=== PATIENT | male | born 1950 | race Caucasian/White ===

== ENCOUNTER 2016-07-27 14:56 | Inpatient (IN) | payer MEDICARE, OTHER ==
--- NOTE | 2016-07-27 15:29 | PDOC ---
Attending Attestation - Resident Resident Name: Byron Mcmahon - ED Attending Attestation I have performed the following: I have examined & evaluated the patient, The case was reviewed & discussed with the resident, I agree w/resident's findings & plan, Exceptions are as noted - HPI HPI: 07/27/16 15:28 The patient is a 66-year-old male, with multiple medical problems including HTN , HLP, CAD, CHF, atrial fibrillation (off anticoagulation due to UGIB in past), who presents to the emergency department at the encouragement of his primary care physician when outpatient labs revealed anemia. He reports dyspnea on exertion. He denies recent melena, hematochezia, hematuria, epistaxis. He denies back pain/thigh pain. He denies new medications. 07/27/16 15:42 - Physicial Exam PE: 07/27/16 15:29 The patient is well appearing and in no acute distress He has conjunctival pallor - Medical Decision Making 07/27/16 15:29 Will obtain labs 07/27/16 16:26 CBC noted with anemia Laboratory Tests 07/27/16 15:40 Hgb 4.8 L* D MCV 68.4 L D RDW 25.2 H Low MCV with high RDW is suggestive of iron deficiency Will guiac Will admit Clinical impression: Symptomatic anemia 07/27/16 16:31 07/27/16 16:32 Case discussed in detail with oncoming Emergency Physician including history, physical exam and ancillary studies. Oncoming Emergency Physician has assumed care for the patient and will complete the evaluation and treatment. Discharge Disposition - Diagnosis Anemia - Discharge Dispostion Last Admission D/C Date: 03/02/14 Admit: Yes - Referrals Referrals: David Nichols MD [Primary Care Provider] -
--- NOTE | 2016-07-27 16:00 | PDOC ---
History of Present Illness - General Stated Complaint: ABNORMAL LABS Time Seen by Provider: 07/27/16 15:10 History Source: Patient Exam Limitations: No Limitations - History of Present Illness Initial Comments: 07/27/16 16:02 63-year-old M with significant past medical history of HTN, HLD, CAD, Atrial fibrillation (previously on Eliquis), CHF, IDDM, asthma and gout who presents to the Emergency Department via EMS sent from PCP due to low Hgb seen of recent labs. He stopped Eliquis 2 mo ago after he experienced hematemesis. Last week went to PCP and had meds adjusted and labs done. Today while walking by clinic PCP saw him and told him they had been trying to contact him. Called EMS and sent him to ER. Now complaining of increased SOB on exertion. Denies CP,ACEVES, abd.pain, nausea or vomiting. Past History - Past Medical History Allergies/Adverse Reactions: Allergies Allergy/AdvReac Type Severity Reaction Status Date / Time No Known Allergies Allergy Verified 07/27/16 15:31 Home Medications: Ambulatory Orders Albuterol Sulfate Inhaler - [Ventolin HFA Inhaler -] 1 - 2 inh PO QID 02/25/14 Hydralazine HCl 25 mg PO BID #0 tablet 03/02/14 Isosorbide Mononitrate [Imdur] 30 mg PO DAILY #0 tab.sr.24h 03/02/14 Allopurinol [Zyloprim -] 100 mg PO DAILY 07/27/16 Amlodipine Besylate [Norvasc -] 10 mg PO DAILY 07/27/16 Aspirin Coated [Ecotrin -] 81 mg PO DAILY 07/27/16 Atorvastatin Ca [Lipitor] 40 mg PO HS 07/27/16 Furosemide [Lasix] 20 mg PO DAILY 07/27/16 Hydralazine HCl [Apresoline -] 25 mg PO DAILY 07/27/16 Insulin Glargine,Hum.rec.anlog [Lantus Solostar PEN (NF)] 3 ml SQ BID 07/27/16 Lisinopril [Prinivil -] 40 mg PO DAILY 07/27/16 Spironolactone 25 mg PO DAILY 07/27/16 Anemia: No Asthma: Yes Cancer: No Cardiac Disorders: Yes CVA: No CHF: No Dementia: No Diabetes: Yes GI Disorders: No Disorders: No HTN: Yes Hypercholesterolemia: Yes Liver Disease: No Seizures: No - Surgical History Cardiac Surgery: No Neurologic Surgery: No Orthopedic Surgery: Yes - Psycho/Social/Smoking Cessation Hx Anxiety: No Suicidal Ideation: No Smoking History: Unknown if ever smoked Have you smoked in the past 12 months: No Hx Alcohol Use: No Drug/Substance Use Hx: No Substance Use Type: None Hx Substance Use Treatment: No Review of Systems - Review of Systems Able to Perform ROS?: Yes Is the patient limited [place] proficient: No Constitutional: Yes: Weakness Respiratory: Yes: SOB with Exertion *Physical Exam - Vital Signs Last Vital Signs Temp Pulse Resp BP Pulse Ox 97.8 F 72 19 128/61 96 07/27/16 15:11 07/27/16 15:11 07/27/16 15:11 07/27/16 15:11 07/27/16 15:11 - Physical Exam General Appearance: Yes: Mild Distress HEENT: positive: EOMI, OUMOU, Other (pale conjuctiva) Neck: positive: Supple Respiratory/Chest: positive: Lungs Clear, Normal Breath Sounds. negative: Respiratory Distress, Accessory Muscle Use Cardiovascular: positive: Regular Rate, S1, S2, Edema, Irregularly Irregular. negative: JVD, Murmur Vascular Pulses: Dorsalis-Pedis (R): 1+, Doralis-Pedis (L): 1+ Gastrointestinal/Abdominal: positive: Normal Bowel Sounds, Distended, Hernia ( large umbilical ). negative: Guarding, Rebound, Tenderness Musculoskeletal: positive: Normal Inspection. negative: CVA Tenderness Extremity: positive: Swelling, Other (right foot with large painful non- erythemtous nodule plantar surface. ). 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 P: * Will most likely need transfusion * stat labs: * URINALYSIS Stat * ELECTROCARDIOGRAM [CARD] Stat * CHEST X-RAY PORTABLE* [RAD] Stat * TYPE AND SCREEN Stat * ACTIVATED PTT Stat * CARDIAC PROFILE ([facility]) Stat * CBC WITH DIFFERENTIAL * COMP METABOLIC PANEL * MAGNESIUM * PT [PT/INR (PROTHROMBIN TIME) * RETICULOCYTES Stat 07/27/16 16:52 Abnormal Lab Results 07/27/16 07/27/16 07/27/16 15:40 15:40 15:40 RBC 2.44 L D Hgb 4.8 L* D Hct 16.7 L D MCV 68.4 L D MCHC 29.0 L RDW 25.2 H Monocytes % 13.6 H INR 1.42 H Crossmatch See Detail 07/27/16 16:52 Will admit and transfuse 2 units PRBC. *DC/Admit/Observation/Transfer Diagnosis at time of Disposition: Anemia Qualifiers: Anemia type: unspecified type Qualified Code(s): D64.9 - Anemia, unspecified - Referrals Referrals: David Nichols MD [Primary Care Provider] -
[2016-07-27 16:04] LABS: BASOPHIL 1.2 % (0-2.0); EOSINOPHIL 1.7 % (0-4.5); MEAN CELL VOLUME 68.4 fl (80-96); MEAN PLT VOLUME 8.3 fl (7.5-11.1); PLATELET COUNT 410 K/MM3 (134-434); RDW 25.2 % (11.9-15.9); WHITE BLOOD COUNT 7.4 K/mm3 (4.0-10.0)
[2016-07-27 16:16] LABS: BILIRUBIN,TOTAL 0.7 mg/dL (0.2-1.0); CALCIUM 8.2 mg/dL (8.5-10.1); COCKROFT - GAULT 37.55; CREATININE 1.8 mg/dL (0.7-1.3); MAGNESIUM 1.8 mg/dL (1.8-2.4); PHOSPHOROUS 4.4 mg/dL (2.5-4.9); TOT PROT 7.3 g/dl (6.4-8.2)
[2016-07-27 16:18] LABS: INR 1.42 (0.82-1.09); PROTHROMBIN TIME (PATIENT) 15.7 SEC (9.98-11.88); TROPONIN I 0.02 ng/ml (0.00-0.05)
[2016-07-27 16:19] LABS: MCH 19.8 pg (25.7-33.7)
[2016-07-27 17:44] LABS: FERRITIN 11.18 ng/ml (16.4-293.9); THYROID STIMULATING HORMONE 2.21 uIU/ml (0.358-3.74)
--- NOTE | 2016-07-27 20:13 | HP ---
CHIEF COMPLAINT: SOB, Weakness PCP: Dr. David Nichols HISTORY OF PRESENT ILLNESS: This is a 66 male with a past medical history of Hypertension, Diabetes Mellitus , Hyperlipidemia, Non-Ischemic Cardiomyopathy, Alcohol Abuse (3 yrs ago), GI bleed. Who presents to the emergency department with SOB, and weakness x 1 week. Patient reports stopping Eliquis 2 months ago secondary to hematemesis. Patient reports drinking [employer] Rum 4-5 glasses 2 weeks ago. Patient denies fever, chills, cough, dizziness, CP, AP, N/V/D, constipation, melena, hematochezia, dysuria. Patient reports last colonoscopy 2013. ER course was notable for: (1) Hgb 4.8 transfused 1 unit PRBC in ED (2) Chest Xray- (3) EKG-Afib 82bpm, Inferior Infarct, Anteroseptal Infarct age undetermined Recent Travel: None PAST MEDICAL HISTORY: See HPI PAST SURGICAL HISTORY: See HPI Social History: Smoking: Never Alcohol: Alcohol Abuse-stopped 3 yrs ago, started 2 weeks ago x1 episode Drugs: None Lives alone, independent, not employed Family History: Mother: Breast Ca Allergies No Known Allergies Allergy (Verified 07/27/16 15:31) HOME MEDICATIONS: Home Medications Medication Instructions Recorded Albuterol Sulfate Inhaler - 1 - 2 inh PO QID 02/25/14 [Ventolin HFA Inhaler -] Hydralazine HCl 25 mg PO BID #0 tablet 03/02/14 Isosorbide Mononitrate [Imdur] 30 mg PO DAILY #0 tab.sr.24h 03/02/14 Allopurinol [Zyloprim -] 100 mg PO DAILY 07/27/16 Amlodipine Besylate [Norvasc -] 10 mg PO DAILY 07/27/16 Aspirin Coated [Ecotrin -] 81 mg PO DAILY 07/27/16 Atorvastatin Ca [Lipitor] 40 mg PO HS 07/27/16 Furosemide [Lasix] 20 mg PO DAILY 07/27/16 Hydralazine HCl [Apresoline -] 25 mg PO DAILY 07/27/16 Insulin Glargine,Hum.rec.anlog 3 ml SQ BID 07/27/16 [Lantus Solostar PEN (NF)] Lisinopril [Prinivil -] 40 mg PO DAILY 07/27/16 Spironolactone 25 mg PO DAILY 07/27/16 REVIEW OF SYSTEMS CONSTITUTIONAL: generalized weakness Absent: fever, chills, diaphoresis, malaise, loss of appetite, weight change HEENT: Absent: rhinorrhea, nasal congestion, throat pain, throat swelling, difficulty swallowing, mouth swelling, ear pain, eye pain, visual changes CARDIOVASCULAR: Absent: chest pain, syncope, palpitations, irregular heart rate, lightheadedness , peripheral edema RESPIRATORY: shortness of breath Absent: cough, dyspnea with exertion, orthopnea, wheezing, stridor, hemoptysis GASTROINTESTINAL: Absent: abdominal pain, abdominal distension, nausea, vomiting, diarrhea, constipation, melena, hematochezia GENITOURINARY: Absent: dysuria, frequency, urgency, hesitancy, hematuria, flank pain, genital pain MUSCULOSKELETAL: right foot growth Absent: myalgia, arthralgia, joint swelling, back pain, neck pain SKIN: Absent: rash, itching, pallor HEMATOLOGIC/IMMUNOLOGIC: Absent: easy bleeding, easy bruising, lymphadenopathy, frequent infections ENDOCRINE: Absent: unexplained weight gain, unexplained weight loss, heat intolerance, cold intolerance NEUROLOGIC: Absent: headache, focal weakness or paresthesias, dizziness, unsteady gait, seizure, mental status changes, bladder or bowel incontinence PSYCHIATRIC: Absent: anxiety, depression, suicidal or homicidal ideation, hallucinations. PHYSICAL EXAMINATION Vital Signs - 24 hr 07/27/16 07/27/16 19:22 20:01 Temperature 97.4 F L 98 F Pulse Rate [ 87 75 Right Radial] Respiratory 20 20 Rate Blood Pressure 144/81 126/78 [Right Arm] O2 Sat by Pulse 100 96 Oximetry (%) GENERAL: Awake, alert, and fully oriented, in no acute distress. HEAD: Normal with no signs of trauma. EYES: Pupils equal, round and reactive to light, extraocular movements intact, sclera icteric, conjunctiva pale. No lid lag. EARS, NOSE, THROAT: Ears normal, nares patent, oropharynx clear without exudates. Dry mucous membranes. NECK: Normal range of motion, supple without lymphadenopathy, JVD, or masses. LUNGS: Breath sounds equal, clear to auscultation bilaterally. No wheezes, and no crackles. No accessory muscle use. HEART: Irregular rate and rhythm, normal S1 and S2 without murmur, rub or gallop. ABDOMEN: Firm, epigastric, RUQ, LLQ tenderness, distended, hypoactive bowel sounds,+large umbilical hernia. No guarding, no rebound, no masses. No hepatomegaly or splenomegaly. MUSCULOSKELETAL: Normal range of motion at all joints. No bony deformities or tenderness. No CVA tenderness. UPPER EXTREMITIES: 2+ pulses, warm, well-perfused. No cyanosis. No clubbing. No peripheral edema. LOWER EXTREMITIES: 2+ pulses, warm, well-perfused. No calf tenderness. +2 pitting R > L peripheral edema. NEUROLOGICAL: Cranial nerves II-XII intact. Normal speech. Gait not observed. PSYCHIATRIC: Cooperative. Good eye contact. Appropriate mood and affect. SKIN: Warm, dry, normal turgor, no rashes, palpable, painful circular nodules smooth with well defined borders #1- 1cm proximal, #2 -2cm distal to plantar aspect of right foot noted, normal capillary refill. Laboratory Results - last 24 hr 07/27/16 07/27/16 07/27/16 16:47 16:50 16:50 Retic Count 2.55 H D Ferritin 11.180 L Vitamin B12 710 Serum Folate 37 H TSH 2.21 Stool Occult Blood Negative Laboratory Results - last 24 hr 07/27/16 07/27/16 07/27/16 15:40 15:40 15:40 WBC 7.4 RBC 2.44 L D Hgb 4.8 L* D Hct 16.7 L D MCV 68.4 L D MCHC 29.0 L RDW 25.2 H Plt Count 410 D MPV 8.3 D Neutrophils % 67.0 Lymphocytes % 16.5 D Monocytes % 13.6 H Eosinophils % 1.7 Basophils % 1.2 Platelet Estimate Adequate Platelet Comment Few giant plts Polychromasia 1+ Hypochromic-Microcytic 3+ Poikilocytosis 1+ Anisocytosis 1+ Microcytosis 1+ Target Cells 1+ Morphology Comment Slide scanned Retic Count INR 1.42 H PTT (Actin FS) Sodium 135 L Potassium 4.7 D Chloride 104 Carbon Dioxide 22 Anion Gap 9 BUN 28 H Creatinine 1.8 H Creat Clearance w eGFR 37.82 POC Glucometer Random Glucose 69 L D Calcium 8.2 L Phosphorus Magnesium Ferritin Total Bilirubin 0.7 D AST 16 ALT 12 Alkaline Phosphatase 155 H D Creatine Kinase Troponin I Total Protein 7.3 D Albumin 3.0 L Vitamin B12 Serum Folate TSH Stool Occult Blood Blood Type Antibody Screen Crossmatch 07/27/16 07/27/16 07/27/16 15:40 15:40 15:40 WBC RBC Hgb Hct MCV MCHC RDW Plt Count MPV Neutrophils % Lymphocytes % Monocytes % Eosinophils % Basophils % Platelet Estimate Platelet Comment Polychromasia Hypochromic-Microcytic Poikilocytosis Anisocytosis Microcytosis Target Cells Morphology Comment Retic Count INR PTT (Actin FS) 28.9 Sodium Potassium Chloride Carbon Dioxide Anion Gap BUN Creatinine Creat Clearance w eGFR POC Glucometer Random Glucose Calcium Phosphorus 4.4 Magnesium 1.8 Ferritin Total Bilirubin AST ALT Alkaline Phosphatase Creatine Kinase 83 Troponin I 0.02 D Total Protein Albumin Vitamin B12 Serum Folate TSH Stool Occult Blood Blood Type O POSITIVE Antibody Screen Negative Crossmatch See Detail 07/27/16 07/27/16 07/27/16 16:47 16:50 16:50 WBC RBC Hgb Hct MCV MCHC RDW Plt Count MPV Neutrophils % Lymphocytes % Monocytes % Eosinophils % Basophils % Platelet Estimate Platelet Comment Polychromasia Hypochromic-Microcytic Poikilocytosis Anisocytosis Microcytosis Target Cells Morphology Comment Retic Count 2.55 H D INR PTT (Actin FS) Sodium Potassium Chloride Carbon Dioxide Anion Gap BUN Creatinine Creat Clearance w eGFR POC Glucometer Random Glucose Calcium Phosphorus Magnesium Ferritin 11.180 L Total Bilirubin AST ALT Alkaline Phosphatase Creatine Kinase Troponin I Total Protein Albumin Vitamin B12 710 Serum Folate 37 H TSH 2.21 Stool Occult Blood Negative Blood Type Antibody Screen Crossmatch 07/27/16 21:00 WBC RBC Hgb Hct MCV MCHC RDW Plt Count MPV Neutrophils % Lymphocytes % Monocytes % Eosinophils % Basophils % Platelet Estimate Platelet Comment Polychromasia Hypochromic-Microcytic Poikilocytosis Anisocytosis Microcytosis Target Cells Morphology Comment Retic Count INR PTT (Actin FS) Sodium Potassium Chloride Carbon Dioxide Anion Gap BUN Creatinine Creat Clearance w eGFR POC Glucometer [id number] Random Glucose Calcium Phosphorus Magnesium Ferritin Total Bilirubin AST ALT Alkaline Phosphatase Creatine Kinase Troponin I Total Protein Albumin Vitamin B12 Serum Folate TSH Stool Occult Blood Blood Type Antibody Screen Crossmatch ASSESSMENT/PLAN: This is a 66 y/o male with a PMHx of: HTN, DM, HLD, Afib (no AC), Non-Ischemic Cardiomyopathy, Alcohol Abuse. Who presents to the ED with SOB and weakness. Admitted to Med Surg for Symptomatic Anemia for further evaluation of their emergent condition. Plan 1. Heme: Symptomatic Anemia - Likely secondary to iron deficiency vs liver disease vs cardio renal syndrome - Hgb baseline 7-14 - Stool Occult-negative - Transfused PRBC x1 in ED, 2nd pending - Will add on FE & TIBC to labs drawn earlier - Appreciate Heme Consult - Repeat CBC post transfusion - Will Transfuse if Hgb < 7.0 - Monitor vitals - O2 2. GI: Abdominal Distention/Hernia - Likely secondary to Cirrhosis - Hx ETOH Abuse, patient admits to drinking 2 weeks again - Appreciate GI Consult - Consider IR for paracentesis - f/u with surgery in outpatient for hernia 3. Derm: Painful Nodular to Right Plantar - Patient reports having a non-painful "cyst" to his right foot x months-years - On exam: R plantar nodules x2 painful to palpation - Xray of R- foot- pending - Consider dermatology consult or in outpatient for f/u 4. Card: Afib/HTN/HLD - EKG- reviewed - CE neg x1 - Hold Asa - Monitor BP - Continue home meds 5. Endocrine - Controlled - BGMs - ISS - Monitor renal function 6. Alcohol Abuse - Patient counseled on Alcohol Cessation - ETOH level- pending - Start Folic Acid, Thiamine 7. FEN - Fluid Restriction 1L - Replete lytes prn - Clear Liquids until seen by GI 8. DVT/PPI Prophylaxis - OOB - SCDs - Hold ACs 2/2 Anemia Code Status: Full Code Dispo: Continue Inpatient Care Problem List - Problem (1) Symptomatic anemia Code(s): D64.9 - ANEMIA, UNSPECIFIED (2) Atrial fibrillation Code(s): I48.91 - UNSPECIFIED ATRIAL FIBRILLATION (3) HTN (hypertension) Code(s): I10 - ESSENTIAL (PRIMARY) HYPERTENSION (4) Diabetes mellitus Code(s): E11.9 - TYPE 2 DIABETES MELLITUS WITHOUT COMPLICATIONS (5) HLD (hyperlipidemia) Code(s): E78.5 - HYPERLIPIDEMIA, UNSPECIFIED (6) DVT prophylaxis Code(s): [id number] - Visit type - Emergency Visit Emergency Visit: Yes ED Registration Date: 07/27/16 Care time: The patient presented to the Emergency Department on the above date and was hospitalized for further evaluation of their emergent condition. - New Patient This patient is new to me today: Yes Date on this admission: 07/27/16 - Critical Care Critical Care patient: No
[2016-07-27 21:07] LABS: ANISOCYTOSIS 1+; HYPOCHROMIA 3+; PLATELET ESTIMATE ADEQUATE (NORMAL); POIKILOCYTOSIS 1+; POLYCHROMASIA 1+
[2016-07-27 21:08] LABS: MICROCYTOSIS 1+; TARGET CELLS 1+
[2016-07-27 22:32] VITALS: BMI 30.4
[2016-07-28 03:41] LABS: URINE APPEARANCE CLEAR; URINE BILIRUBIN NEGATIVE (NEGATIVE); URINE BLOOD NEGATIVE (NEGATIVE); URINE COLOR LTYELLOW; URINE GLUCOSE (UA) NEGATIVE (NEGATIVE); URINE KETONE NEGATIVE (NEGATIVE); URINE LEUK ESTERASE NEGATIVE (NEGATIVE); URINE NITRITE NEGATIVE (NEGATIVE); URINE PROTEIN NEGATIVE (NEGATIVE); URINE UROBILINOGEN NEGATIVE E.U./dl (0.2-1.0)
[2016-07-28] MEDS ORDERED: INSULIN SLIDING SCALE (NOVOLOG) 1 VIAL SQ SCH ×2 (07:00)
[2016-07-28] MEDS ORDERED: DEXTROSE 50%-WATER 50 ML VIAL IVPUSH ONE ×2 (07:02→16:42)
[2016-07-28] MEDS ORDERED: DEXTROSE 5%-WATER - 1,000 ML IV SCH ×2 (07:15→17:59)
[2016-07-28 09:01] LABS: BASOPHIL 0.6 % (0-2.0); EOSINOPHIL 0.5 % (0-4.5); MCH 22.2 pg (25.7-33.7); MCHC 31.2 g/dl (32.0-35.9); MEAN CELL VOLUME 71.1 fl (80-96); MEAN PLT VOLUME 8.6 fl (7.5-11.1); NEUTROPHILS 75.9 % (42.8-82.8); PLATELET COUNT 376 K/MM3 (134-434); RDW 24.3 % (11.9-15.9); WHITE BLOOD COUNT 8.1 K/mm3 (4.0-10.0)
[2016-07-28 09:34] LABS: CALCIUM 8.3 mg/dL (8.5-10.1)
[2016-07-28 09:36] LABS: COCKROFT - GAULT 52.48; CREATININE 1.7 mg/dL (0.7-1.3)
--- NOTE | 2016-07-28 10:56 | EKG ---
Test Reason : Blood Pressure : / mmHG Vent. Rate : 082 BPM Atrial Rate : 288 BPM P-R Int : 000 ms QRS Dur : 094 ms QT Int : 404 ms P-R-T Axes : 000 -26 217 degrees QTc Int : 472 ms ATRIAL FIBRILLATION INFERIOR INFARCT , AGE UNDETERMINED ANTEROSEPTAL INFARCT (CITED ON OR BEFORE 14-JAN-2014) ABNORMAL ECG Confirmed by AUBREY GARCIA MD ([id number]) on 07/28/2016 10:56:22 AM Referred By: Confirmed By:AUBREY GARCIA MD
--- NOTE | 2016-07-28 13:17 | PN ---
Progress Note (short form) - Note Progress Note: consult placed last night for GI evaluation. Patient being admitted to hospitalist service. had been seen in 2013 while my group was on GI service. Had EGD performed. patient never followed up in office or answered correspondences sent from my office for follow-up. Advised nurse earlier this AM to change consult t who was on GI service yesterday / last night
--- NOTE | 2016-07-28 16:12 | PN ---
Physical Exam: SUBJECTIVE: Patient seen and examined. He states he feels well and is asking to go home. OBJECTIVE: He has completed 2 units of PRBC for symptomatic anemia Vital Signs Period Temp Pulse Resp BP Sys/Angulo Pulse Ox Last 24 Hr 97.4 F-98 F 75-87 20-20 126-155/61-108 96-100 GENERAL: Awake, alert, and fully oriented, in no acute distress. HEAD: Normal with no signs of trauma. EYES: Pupils equal, round and reactive to light, extraocular movements intact, sclera icteric EARS, NOSE, THROAT: Ears normal, nares patent, oropharynx clear without exudates. Dry mucous membranes. NECK: Normal range of motion, supple without lymphadenopathy, JVD, or masses. LUNGS: Breath sounds equal, clear to auscultation bilaterally. No wheezes HEART: Irregular rate and rhythm, normal S1 and S2 without murmur, rub or gallop. ABDOMEN: RUQ, LLQ tenderness, distended, hypoactive bowel sounds,+ umbilical hernia. MUSCULOSKELETAL: Normal range of motion at all joints. No bony deformities or tenderness. No CVA tenderness. UPPER EXTREMITIES: 2+ pulses, warm, well-perfused. No cyanosis. No clubbing. No peripheral edema. LOWER EXTREMITIES: +2 pitting bilateral lower ext. edema. NEUROLOGICAL: Cranial nerves II-XII intact. Normal speech. Gait not observed. PSYCHIATRIC: Cooperative. Good eye contact. Appropriate mood and affect. SKIN: Warm, dry, normal turgor, no rashes, palpable, painful circular nodules smooth with well defined borders on plantar aspect of right foot Laboratory Results - last 24 hr 07/27/16 07/27/16 07/27/16 16:47 16:50 16:50 WBC RBC Hgb Hct MCV MCHC RDW Plt Count MPV Neutrophils % Lymphocytes % Monocytes % Eosinophils % Basophils % Retic Count 2.55 H D Sodium Potassium Chloride Carbon Dioxide Anion Gap BUN Creatinine POC Glucometer Random Glucose Calcium Ferritin 11.180 L Vitamin B12 710 Serum Folate 37 H TSH 2.21 Urine Color Urine Appearance Urine pH Ur Specific [place] Urine Protein Urine Glucose (UA) Urine Ketones Urine Blood Urine Nitrite Urine Bilirubin Urine Urobilinogen Ur Leukocyte Esterase Stool Occult Blood Negative Alcohol, Quantitative 07/27/16 07/28/16 07/28/16 21:00 03:25 05:54 WBC RBC Hgb Hct MCV MCHC RDW Plt Count MPV Neutrophils % Lymphocytes % Monocytes % Eosinophils % Basophils % Retic Count Sodium Potassium Chloride Carbon Dioxide Anion Gap BUN Creatinine POC Glucometer [id number] 52 Random Glucose Calcium Ferritin Vitamin B12 Serum Folate TSH Urine Color Ltyellow Urine Appearance Clear Urine pH 5.0 Ur Specific [place] 1.010 Urine Protein Negative Urine Glucose (UA) Negative Urine Ketones Negative Urine Blood Negative Urine Nitrite Negative Urine Bilirubin Negative Urine Urobilinogen Negative Ur Leukocyte Esterase Negative Stool Occult Blood Alcohol, Quantitative 07/28/16 07/28/16 07/28/16 06:55 06:56 07:34 WBC 8.1 RBC 3.29 L D Hgb 7.3 L D Hct 23.4 L D MCV 71.1 L MCHC 31.2 L RDW 24.3 H Plt Count 376 MPV 8.6 Neutrophils % 75.9 Lymphocytes % 12.0 D Monocytes % 11.0 H Eosinophils % 0.5 Basophils % 0.6 Retic Count Sodium Potassium Chloride Carbon Dioxide Anion Gap BUN Creatinine POC Glucometer 49 49 Random Glucose Calcium Ferritin Vitamin B12 Serum Folate TSH Urine Color Urine Appearance Urine pH Ur Specific [place] Urine Protein Urine Glucose (UA) Urine Ketones Urine Blood Urine Nitrite Urine Bilirubin Urine Urobilinogen Ur Leukocyte Esterase Stool Occult Blood Alcohol, Quantitative 07/28/16 07/28/16 07/28/16 07:34 07:34 07:55 WBC RBC Hgb Hct MCV MCHC RDW Plt Count MPV Neutrophils % Lymphocytes % Monocytes % Eosinophils % Basophils % Retic Count Sodium 134 L Potassium 4.6 Chloride 103 Carbon Dioxide 21 Anion Gap 10 BUN 31 H Creatinine 1.7 H POC Glucometer 100 Random Glucose 109 H D Calcium 8.3 L Ferritin Vitamin B12 Serum Folate TSH Urine Color Urine Appearance Urine pH Ur Specific [place] Urine Protein Urine Glucose (UA) Urine Ketones Urine Blood Urine Nitrite Urine Bilirubin Urine Urobilinogen Ur Leukocyte Esterase Stool Occult Blood Alcohol, Quantitative < 5.0 07/28/16 11:15 WBC RBC Hgb Hct MCV MCHC RDW Plt Count MPV Neutrophils % Lymphocytes % Monocytes % Eosinophils % Basophils % Retic Count Sodium Potassium Chloride Carbon Dioxide Anion Gap BUN Creatinine POC Glucometer 83 Random Glucose Calcium Ferritin Vitamin B12 Serum Folate TSH Urine Color Urine Appearance Urine pH Ur Specific [place] Urine Protein Urine Glucose (UA) Urine Ketones Urine Blood Urine Nitrite Urine Bilirubin Urine Urobilinogen Ur Leukocyte Esterase Stool Occult Blood Alcohol, Quantitative Generic Name Dose Route Start Last Admin Trade Name Freq PRN Reason Stop Dose Admin Dextrose 1,000 mls @ 60 mls/hr 07/28/16 07:15 07/28/16 07:45 D5w - IV 60 mls/hr ASDIR RICARDO Administration ASSESSMENT/PLAN: Patient is a 66 year old male with a significant past medical history of hypertension, diabetes mellitus, hyperlipidemia, non-Ischemic Cardiomyopathy, ETOH abuse, and GI bleed. He presented to the ED on 07/27/2016 with SOB, and weakness x 1 week. Patient reports stopping Eliquis 2 months ago secondary to hematemesis. He also reports recent use of alcohol but is unable to quantify amount. States he last use alcohol 2 weeks ago. Imaging: Foot xray 07/28/2016: extensive deg. changes, loss of bone density with deg. changes, cystic or hypodense area @ base of metastarsal. Abd ultrasound 07/28/2016: ascites identified which is moderate in volume Chest xray 07/27/2016: large heart, no acute chest pathology Hematology: Symptomatic anemia - likely chronic Assessment/Plan: s/p 2 units of prbc h/h low but but stable s/p blood transfusion Baseline hgb 7-14 Monitor CBC in a.m.: Will Transfuse if Hgb < 7.0 Oxygen 2 liters prn Stool occult negative Hematology following Endocrine: Hypoglycemia - acute vs chronic Assessment/Plan: episodes of hypoglycemia today requiring various pushes of D50 On NS w/d5 @100cc Patient reports taking Lantus 30 units BID @ home which is currently on hold Monitor BGMs q 4 hours and PRN if symptomatic GI: Ascites - chronic/likely secondary to cirrhosis Assessment/Plan: ascites identified which is moderate in volume as per abd. ultrasound IR consulted for possible paracentesis GI consulted : Acute Kidney Injury Assessment/Plan: baseline creat 1.1 On IVF now, holding Lasix 40mg Trend bun/creat. Psyche: ETOH abuse Assessment/Plan: Patient denies any more recent ETOH intake than 2 weeks ago No signs of withdrawal on exam CIWA score 0. Folic acid and thiamine started Ortho: Nodule to right plantar - chronic Assessment/Plan: Patient states he has been having this non painful nodule for years Ortho follow up as outpatient Xray of foot reviewed Cardiology: Afib/Hypertension Assessment/Plan: Pt is no longer on Eliquis secondary to hematemesis. ASA 81mg on hold On Norvasc 10mg daily, Isosorbide 30mg daily, Hydralazine 25mg daily Hyperlipidemia: Assessment/Plan: On home dose of Lipitor F.E.N. Fluids: NS with D5 @ 100 Electrolytes: monitor with BMP Nutrition: clears for now Prophylaxis: DVT: scds/ no AC secondary to anemia GI: Protonix Disposition: Full Code, continue inpatient care
[2016-07-28] MEDS ORDERED: DEXTROSE 50%-WATER 50 ML VIAL ONE (16:46)
--- NOTE | 2016-07-28 18:47 | CON.GI ---
Consult Consult Specialty:: gastroenterology Reason for Consultation:: anemia - History of Present Illness History of Present Illness: 66 y/o male with PMHX of bleeding gastric ulcer in 2013(Dr Landon) was admitted because of symptomatic anemia. He felt weak associated with easy fatigability,. He denies melena, dysphagia, rectal bleeding and abdominal pain. HGB on admission was 4. His guaiac was negative. - Past Medical History Cardio/Vascular: Yes: AFIB, CHF, HTN, Hyperlipdemia, Other (Ventricular tachycardia refused ICD and Life vest) Endocrine: Yes: Diabetes Mellitus - Alcohol/Substance Use Hx Alcohol Use: No - Smoking History Smoking history: Unknown if ever smoked Have you smoked in the past 12 months: No - Social History Usual Living Arrangement: Other () ADL: Independent History of Recent Travel: No Home Medications - Allergies Allergies/Adverse Reactions: Allergies Allergy/AdvReac Type Severity Reaction Status Date / Time No Known Allergies Allergy Verified 07/27/16 15:31 - Home Medications Home Medications: Ambulatory Orders Albuterol Sulfate Inhaler - [Ventolin HFA Inhaler -] 1 - 2 inh PO QID 02/25/14 Hydralazine HCl 25 mg PO BID #0 tablet 03/02/14 Isosorbide Mononitrate [Imdur] 30 mg PO DAILY #0 tab.sr.24h 03/02/14 Allopurinol [Zyloprim -] 100 mg PO DAILY 07/27/16 Amlodipine Besylate [Norvasc -] 10 mg PO DAILY 07/27/16 Aspirin Coated [Ecotrin -] 81 mg PO DAILY 07/27/16 Atorvastatin Ca [Lipitor] 40 mg PO HS 07/27/16 Furosemide [Lasix] 20 mg PO DAILY 07/27/16 Hydralazine HCl [Apresoline -] 25 mg PO DAILY 07/27/16 Insulin Glargine,Hum.rec.anlog [Lantus Solostar PEN (NF)] 3 ml SQ BID 07/27/16 Lisinopril [Prinivil -] 40 mg PO DAILY 07/27/16 Spironolactone 25 mg PO DAILY 07/27/16 Family Disease History - Family Disease History Family History: Denies (colon and gastric cancer) Review of Systems - Review of Systems Constitutional: denies: Fever Eyes: denies: Blind Spots HENT: denies: Difficult Swallowing Neck: denies: Decreased ROM Cardiovascular: denies: Chest Pain Respiratory: reports: Exercise Intolerance, SOB Gastrointestinal: denies: Abdominal Pain, Bloating, Constipation, Diarrhea, Dysphagia, Indigestion, Melena, Nausea, Rectal Bleeding, Vomiting Physical Exam-GI Vital Signs: Vital Signs Temperature 97.9 F 07/28/16 14:42 Pulse Rate 85 07/28/16 14:42 Respiratory Rate 20 07/28/16 06:00 Blood Pressure 134/61 07/28/16 14:42 O2 Sat by Pulse Oximetry (%) 100 07/28/16 09:00 Constitutional: Yes: Well Nourished Eyes: Yes: Conjunctiva Clear, Occular Prosthesis Neck: Yes: Supple Cardiovascular: Yes: Regular Rate and Rhythm Respiratory: Yes: CTA Bilaterally ...Palpate: Yes: Soft. No: Firm/Rigid, Guarding, Hepatomegaly, Mass, Pulsatile Mass, Splenomegaly, Tenderness Labs: CBC, BMP 07/28/16 07:34 07/28/16 16:58 INR, PTT INR 1.42 (0.82-1.09) H 07/27/16 15:40 Home Medications Medication Instructions Recorded Albuterol Sulfate Inhaler - 1 - 2 inh PO QID 02/25/14 [Ventolin HFA Inhaler -] Hydralazine HCl 25 mg PO BID #0 tablet 03/02/14 Isosorbide Mononitrate [Imdur] 30 mg PO DAILY #0 tab.sr.24h 03/02/14 Allopurinol [Zyloprim -] 100 mg PO DAILY 07/27/16 Amlodipine Besylate [Norvasc -] 10 mg PO DAILY 07/27/16 Aspirin Coated [Ecotrin -] 81 mg PO DAILY 07/27/16 Atorvastatin Ca [Lipitor] 40 mg PO HS 07/27/16 Furosemide [Lasix] 20 mg PO DAILY 07/27/16 Hydralazine HCl [Apresoline -] 25 mg PO DAILY 07/27/16 Insulin Glargine,Hum.rec.anlog 3 ml SQ BID 07/27/16 [Lantus Solostar PEN (NF)] Lisinopril [Prinivil -] 40 mg PO DAILY 07/27/16 Spironolactone 25 mg PO DAILY 07/27/16 Assessment/Plan Occult gi bleeding r/o peptic ulcer disease. r> At present the patient is not bleeding and is very hungry. Because it is the weekend and the patient is not activley bleeding the EGD can be performed this Sunday. If patient continue to be stable he may be discharged and perform EGD as an out patient. advance diet maintain on Protonix 40mg daily
[2016-07-28] MEDS: DEXTROSE 5%-NORMAL SALINE 1,000 ML IV SCH (20:59)
[2016-07-28] MEDS: PANTOPRAZOLE 40 MG TABLET (FP) PO SCH (20:59)
[2016-07-28] MEDS: ALBUTEROL SO4 6.7 GM HFA INHALER IH SCH (20:59)
--- NOTE | 2016-07-28 21:16 | CONSULT ---
Consult - text type - Consultation Consultation Note: 66 y/o male with PMHX of bleeding gastric ulcer in 2013 was admitted because of symptomatic anemia. He felt weak associated with easy fatigability,exertional sob. He denies melena, dysphagia, rectal bleeding and abdominal pain. HGB on admission was 4. - Past Medical History Cardio/Vascular: Yes: AFIB, CHF, HTN, Hyperlipdemia, Other (Ventricular tachycardia refused ICD and Life vest) Endocrine: Yes: Diabetes Mellitus h/o heavy alcohol use --last drink 2 weeks ago - Smoking History Smoking history: nonsmoker - Social History Usual Living Arrangement: Other () ADL: Independent History of Recent Travel: No Home Medications - Allergies Allergies/Adverse Reactions: Allergies Allergy/AdvReac Type Severity Reaction Status Date / Time No Known Allergies Allergy Verified 07/27/16 15:31 - Home Medications Home Medications: Ambulatory Orders Albuterol Sulfate Inhaler - [Ventolin HFA Inhaler -] 1 - 2 inh PO QID 02/25/14 Hydralazine HCl 25 mg PO BID #0 tablet 03/02/14 Isosorbide Mononitrate [Imdur] 30 mg PO DAILY #0 tab.sr.24h 03/02/14 Allopurinol [Zyloprim -] 100 mg PO DAILY 07/27/16 Amlodipine Besylate [Norvasc -] 10 mg PO DAILY 07/27/16 Aspirin Coated [Ecotrin -] 81 mg PO DAILY 07/27/16 Atorvastatin Ca [Lipitor] 40 mg PO HS 07/27/16 Furosemide [Lasix] 20 mg PO DAILY 07/27/16 Hydralazine HCl [Apresoline -] 25 mg PO DAILY 07/27/16 Insulin Glargine,Hum.rec.anlog [Lantus Solostar PEN (NF)] 3 ml SQ BID 07/27/16 Lisinopril [Prinivil -] 40 mg PO DAILY 07/27/16 Spironolactone 25 mg PO DAILY 07/27/16 Family Disease History - Family Disease History Family History: Denies (colon and gastric cancer) Physical Exam-GI Vital Signs: Vital Signs Temperature 97.9 F 07/28/16 14:42 Pulse Rate 85 07/28/16 14:42 Respiratory Rate 20 07/28/16 06:00 Blood Pressure 134/61 07/28/16 14:42 O2 Sat by Pulse Oximetry (%) 100 07/28/16 09:00 Constitutional: Yes: Well Nourished Eyes: Yes: Conjunctiva Clear, Occular Prosthesis Neck: Yes: Supple Cardiovascular: Yes: Regular Rate and Rhythm Respiratory: Yes: CTA Bilaterally ...Palpate: Yes: Soft. umblical hernia+, ascites+ 07/28/16 07:34 07/28/16 16:58 INR, PTT INR 1.42 (0.82-1.09) H 07/27/16 15:40 Home Medications Medication Instructions Recorded Albuterol Sulfate Inhaler - 1 - 2 inh PO QID 02/25/14 [Ventolin HFA Inhaler -] Hydralazine HCl 25 mg PO BID #0 tablet 03/02/14 Isosorbide Mononitrate [Imdur] 30 mg PO DAILY #0 tab.sr.24h 03/02/14 Allopurinol [Zyloprim -] 100 mg PO DAILY 07/27/16 Amlodipine Besylate [Norvasc -] 10 mg PO DAILY 07/27/16 Aspirin Coated [Ecotrin -] 81 mg PO DAILY 07/27/16 Atorvastatin Ca [Lipitor] 40 mg PO HS 07/27/16 Furosemide [Lasix] 20 mg PO DAILY 07/27/16 Hydralazine HCl [Apresoline -] 25 mg PO DAILY 07/27/16 Insulin Glargine,Hum.rec.anlog 3 ml SQ BID 07/27/16 [Lantus Solostar PEN (NF)] Lisinopril [Prinivil -] 40 mg PO DAILY 07/27/16 Spironolactone 25 mg PO DAILY 07/27/16 Current Medications Generic Name Dose Route Start Last Admin Trade Name Freq PRN Reason Stop Dose Admin Albuterol Sulfate 2 puff 07/28/16 22:00 07/28/16 20:59 Ventolin Hfa Inhaler - IH 1 inh QID RICARDO Administration Amlodipine Besylate 10 mg 07/29/16 10:00 Norvasc - PO DAILY RICARDO Hydralazine HCl 25 mg 07/29/16 10:00 Apresoline - PO DAILY RICARDO Dextrose/Sodium Chloride 1,000 mls @ 100 mls/hr 07/28/16 18:30 07/28/16 20:59 D5-Ns - IV 100 mls/hr ASDIR RICARDO Administration Isosorbide Mononitrate 30 mg 07/29/16 10:00 Imdur - PO DAILY RICARDO Pantoprazole Sodium 40 mg 07/28/16 22:00 07/28/16 20:59 Protonix - PO 40 mg BID RICARDO Administration Assessment/Plan 66 y/o patient with h/o heavy alcohol use,last drink 2 weeks ago, comes in with symptomatic anemia, ascites suspect underlying cirrhosis s/p prbcs iron deficiency anemia will discuss with gi team
[2016-07-29] MEDS ORDERED: DEXTROSE 50%-WATER 50 ML VIAL IVPUSH ONE ×2 (01:49→07:15)
[2016-07-29 06:07] LABS: SERUM IRON 11 ug/dL (38-169); TOTAL IRON BINDING CAPACITY 442 ug/dL (250-450); UIBC 431 ug/dL (111-343)
[2016-07-29 07:51] LABS: BASOPHIL 1.1 % (0-2.0); EOSINOPHIL 1.8 % (0-4.5); MCH 22.1 pg (25.7-33.7); MCHC 31.2 g/dl (32.0-35.9); MEAN CELL VOLUME 70.8 fl (80-96); MEAN PLT VOLUME 8.4 fl (7.5-11.1); PLATELET COUNT 349 K/MM3 (134-434); RDW 24.4 % (11.9-15.9); WHITE BLOOD COUNT 6.9 K/mm3 (4.0-10.0)
[2016-07-29] MEDS: DEXTROSE 5%-NORMAL SALINE 1,000 ML IV SCH (08:07)
[2016-07-29 08:19] LABS: ALBUMIN 2.8 g/dl (3.4-5.0); BILIRUBIN,TOTAL 0.6 mg/dL (0.2-1.0); CALCIUM 8.2 mg/dL (8.5-10.1); COCKROFT - GAULT 68.63; CREATININE 1.3 mg/dL (0.7-1.3); MAGNESIUM 1.8 mg/dL (1.8-2.4); TOT PROT 6.7 g/dl (6.4-8.2)
--- NOTE | 2016-07-29 08:38 | CON.CARD ---
Consult Consult Specialty:: cardio Referred by:: hospitalist Reason for Consultation:: afib, anemia, chf - History of Present Illness Chief Complaint: weakness, sob History of Present Illness: 66 yo male presented with several days sob on activity, weakness. found to be anemic with hgb 4 here. sees sarah for cardiology, told he has weak heart/chf. no prior h/o CAD/AL per pt. has afib, was on eliquis--saarh stopped it about 2 mo ago due to hematemesis pt denies sob here in hospital denies leg swelling no cp he denies dx of cirrhosis PMH: etoh abuse syst chf afib - Past Medical History Cardio/Vascular: Yes: AFIB, CHF, HTN, Hyperlipdemia, Other (Ventricular tachycardia refused ICD and Life vest) Endocrine: Yes: Diabetes Mellitus - Alcohol/Substance Use Hx Alcohol Use: No - Smoking History Smoking history: Unknown if ever smoked Have you smoked in the past 12 months: No - Social History Usual Living Arrangement: Other () ADL: Independent History of Recent Travel: No Home Medications - Allergies Allergies/Adverse Reactions: Allergies Allergy/AdvReac Type Severity Reaction Status Date / Time No Known Allergies Allergy Verified 07/27/16 15:31 - Home Medications Home Medications: Ambulatory Orders Albuterol Sulfate Inhaler - [Ventolin HFA Inhaler -] 1 - 2 inh PO QID 02/25/14 Hydralazine HCl 25 mg PO BID #0 tablet 03/02/14 Isosorbide Mononitrate [Imdur] 30 mg PO DAILY #0 tab.sr.24h 03/02/14 Allopurinol [Zyloprim -] 100 mg PO DAILY 07/27/16 Amlodipine Besylate [Norvasc -] 10 mg PO DAILY 07/27/16 Aspirin Coated [Ecotrin -] 81 mg PO DAILY 07/27/16 Atorvastatin Ca [Lipitor] 40 mg PO HS 07/27/16 Furosemide [Lasix] 20 mg PO DAILY 07/27/16 Hydralazine HCl [Apresoline -] 25 mg PO DAILY 07/27/16 Insulin Glargine,Hum.rec.anlog [Lantus Solostar PEN (NF)] 3 ml SQ BID 07/27/16 Lisinopril [Prinivil -] 40 mg PO DAILY 05/04/17 Spironolactone 25 mg PO DAILY 07/27/16 Family Disease History - Family Disease History Family History: Denies (no cmp) Review of Systems - Review of Systems Constitutional: denies: Chills, Fever Eyes: denies: Eye Pain HENT: denies: Nasal Congestion Neck: denies: Stiffness Cardiovascular: denies: Palpitations Respiratory: denies: Orthopnea, PND Gastrointestinal: denies: Diarrhea, Rectal Bleeding Genitourinary: denies: Burning, Hematuria Musculoskeletal: denies: Muscle Pain Integumentary: denies: Rash Neurological: denies: Numbness, Seizure, Syncope Endocrine: denies: Excessive Sweating Hematology/Lymphatic: denies: Excessive Bleeding Vital Signs: Vital Signs Temperature 98.2 F 07/29/16 06:00 Pulse Rate 79 07/29/16 06:00 Respiratory Rate 16 07/29/16 06:00 Blood Pressure 125/70 07/29/16 06:00 O2 Sat by Pulse Oximetry (%) 99 07/28/16 21:00 Constitutional: Yes: Well Nourished, No Distress Eyes: No: Sclera Icterus HENT: No: Nasal Congestion Neck: No: Decreased ROM Respiratory: Yes: Regular, CTA Bilaterally. No: Accessory Muscle Use, Rales, Wheezes Gastrointestinal: Yes: Normal Bowel Sounds, Distention (++ (tense)). No: Hepatomegaly, Palpable Mass, Tenderness Cardiovascular: Yes: Regular Rate and Rhythm JVD: Yes Carotid Bruit: No PMI: Non-Displaced Heart Sounds: Yes: S1, S2. No: Gallop Murmur: No: Systolic Murmur, Diastolic Murmur Musculoskeletal: Yes: Other (No kyphosis) Extremities: No: Cold, Cyanosis Edema: No Peripheral Pulses: 2+ Left Carotid, 2+ Right Carotid, 2+ Left Doralis Pedis, 2+ Right Dorsalis Pedis Integumentary: No: Jaundice Neurological: Yes: Alert, Oriented (x3) Psychiatric: No: Agitated - Other Data Labs, Other Data: CBC, BMP 07/29/16 07:10 07/29/16 07:30 INR, PTT INR 1.42 (0.82-1.09) H 07/27/16 15:40 Laboratory Tests 07/27/16 07/27/16 07/27/16 15:40 15:40 15:40 WBC Hgb 4.8 L* D Plt Count Sodium Potassium Carbon Dioxide BUN Creatinine 1.8 H AST ALT Troponin I 0.02 D Albumin TSH 07/27/16 07/29/16 07/29/16 16:50 07:10 07:30 WBC 6.9 Hgb 7.0 L Plt Count 349 Sodium 134 L Potassium 4.3 Carbon Dioxide 23 BUN 23 H D Creatinine 1.3 D AST 16 ALT 11 L Troponin I Albumin 2.8 L TSH 2.21 ekg 07/28: afib; normal axis/intervals; old AWMI; old IWMI; nonsp ST-Ts--vs prior 2013 ecg, the inferior q waves are new, remainder not signif changed Imaging - Results Chest X-ray: Report Reviewed (clear lungs/pleura) Assessment/Plan Abd ultrasound 07/28/2016: ascites identified which is moderate in volume Chest xray 07/27/2016: large heart, no acute chest pathology 66 year old male with a significant past medical history of hypertension, diabetes mellitus, hyperlipidemia, non-Ischemic Cardiomyopathy, ETOH abuse, and GI bleed. He presented to the ED on 07/27/2016 with SOB, and weakness x 1 week. Patient reports stopping Eliquis 2 months ago secondary to hematemesis. He also reports recent use of alcohol but is unable to quantify amount. States he last use alcohol 2 weeks ago. Anemia: -s/p 2 units of prbc -stool occult negative here, pt reports hematemesis 2 mo ago and h/o bleeding gastric ulcer 2013 -hgb 4 on admit here, remains 7's s/p transfusions -heme and GI notes reviewed--plan for EGD monday 07/31 -pt at this time is not a candidate for AC, at least until he has complete w/u for risk-stratification for GIB incl presence or absence of varices Ascites, known etoh abuse, ? etoh cirrhosis -abdomen very distended, moderate ascites reported on sono -IR consulted for possible paracentesis -GI following acute syst CHF: -reportedly h/o decr LVSF per pt, no h/o CAD ? etoh related CMP -JVD appreciated on exam, hence suspect currently in chf (s/p IVF and PRBCs) -iv lasix x1 today to observe weight response and renal fxn trend (now that anemia is much improved) -echo for LVEF -cont nadolol (for portal HTN as well) -on lisinopril as well as hydral/nitrates per ER home med list -RONNIE held here for MARIA ELENA intially--ok for now, will likely resume later once better diuresed if renal fxn stable -continue hydral/nitrates vasodilator therapy MARIA ELENA: -creat initiall 1.8, likely sec to severe anemia, ? vol depleted -improving here, s/p IVF and PRBCs -creat 1.3 (baseline 1.3-1.5 in 2013, ? more recent values) -stop fluids, will give test dose IV lasix today as above -monitor creat trend closely while diuresing -plan per hospitalist Afib: -outpt cardio (pmd?) started eliquis, stopped as outpt for hematemesis -to have EGD for varices -holding AC as above -HR controlled, cont nadolol (also for portal HTN) HTN: -controlled -cont same meds Hyperlipidemia: -on atorva at home, continued here -ok as long as LFTs stable and GI approves (cirrhosis/)
[2016-07-29] MEDS ORDERED: ASPIRIN COATED 81 MG TABLET.EC PO SCH (10:00)
[2016-07-29] MEDS ORDERED: hydrALAZINE HCL 25 MG TABLET (FP) PO SCH (10:00)
[2016-07-29] MEDS ORDERED: PT OWN MED DRAWER 7, Y5N ONE ×3 (10:20→17:52)
[2016-07-29] MEDS: FERROUS SO4 325 MG TABLET (FP) PO SCH ×2 (10:23→17:15)
[2016-07-29] MEDS: amLODIPine BESYLATE 10 MG TABLET (FP) PO SCH (10:23)
[2016-07-29] MEDS: ISOSORBIDE MONONITRATE 30 MG TAB.SR.24H (FP) PO SCH (10:23)
[2016-07-29] MEDS: ALBUTEROL SO4 6.7 GM HFA INHALER IH SCH ×4 (10:23→21:15)
[2016-07-29] MEDS: PANTOPRAZOLE 40 MG TABLET (FP) PO SCH ×2 (10:23→21:15)
[2016-07-29] MEDS: FOLIC ACID 1 MG TABLET (FP) PO SCH (10:23)
[2016-07-29] MEDS: THIAMINE HCL 100 MG TABLET (FP) PO SCH (10:23)
[2016-07-29] MEDS: NADOLOL 20 MG TABLET (FP) PO SCH (10:38)
[2016-07-29] MEDS ORDERED: FUROSEMIDE 40 MG/4 ML INJECTABLE VIAL IVPUSH ONE ×2 (11:45→14:15)
--- NOTE | 2016-07-29 14:55 | PN ---
GI Progress Note Subjective: feels better,no melena, no rectal bleeding, receiving lasix for CHF, not on any anticoagulation, received 1 unit of PRBC - Objective Vital Signs: Vital Signs Temperature 97.9 F 07/29/16 13:55 Pulse Rate 77 07/29/16 13:55 Respiratory Rate 18 07/29/16 13:55 Blood Pressure 133/74 07/29/16 13:55 O2 Sat by Pulse Oximetry (%) 96 07/29/16 09:00 Constitutional: Obese Eyes: Yes: Conjunctiva Clear HENT: Yes: Atraumatic Cardiovascular: Yes: Regular Rate and Rhythm Respiratory: Yes: CTA Bilaterally Gastrointestinal Inspection: Yes: Ascites ...Palpate: Yes: Soft. No: Firm/Rigid, Guarding, Hepatomegaly, Mass, Pulsatile Mass, Splenomegaly, Tenderness Labs: CBC, BMP 07/29/16 07:10 07/29/16 07:30 INR, PTT INR 1.42 (0.82-1.09) H 07/27/16 15:40 Problem List - Problems (1) Anemia Assessment/Plan: R> made aware to ff-up gi w/u as an outpatient wiil need to be don in hospital because of CHF will need medical clearance from Dr Ann Code(s): D64.9 - ANEMIA, UNSPECIFIED Qualifiers: Anemia type: unspecified type Qualified Code(s): D64.9 - Anemia, unspecified (2) Ascites Code(s): R18.8 - OTHER ASCITES
--- NOTE | 2016-07-29 16:06 | PN ---
Physical Exam: SUBJECTIVE: Patient seen and examined. He was sitting up in bed, in no acute distress OBJECTIVE: hmg/hct low 7.0/22.4 Will order 1 units of prbc Vital Signs Period Temp Pulse Resp BP Sys/Angulo Pulse Ox Last 24 Hr 97.6 F-98.7 F 74-96 16-20 121-159/64-97 96-99 GENERAL: Awake, alert, and fully oriented, in no acute distress. HEAD: Normal with no signs of trauma. EYES: Pupils equal, round and reactive to light, extraocular movements intact, sclera icteric EARS, NOSE, THROAT: Ears normal, nares patent, oropharynx clear without exudates. Dry mucous membranes. NECK: Normal range of motion, supple without lymphadenopathy, JVD, or masses. LUNGS: Breath sounds equal, clear to auscultation bilaterally. No wheezes HEART: Irregular rate and rhythm, normal S1 and S2 without murmur, rub or gallop. ABDOMEN: RUQ, LLQ tenderness, distended, hypoactive bowel sounds,+ umbilical hernia. MUSCULOSKELETAL: Normal range of motion at all joints. No bony deformities or tenderness. No CVA tenderness. UPPER EXTREMITIES: 2+ pulses, warm, well-perfused. No cyanosis. No clubbing. No peripheral edema. LOWER EXTREMITIES: +2 pitting bilateral lower ext. edema. NEUROLOGICAL: Cranial nerves II-XII intact. Normal speech. Gait not observed. PSYCHIATRIC: Cooperative. Good eye contact. Appropriate mood and affect. SKIN: Warm, dry, normal turgor, no rashes, palpable, painful circular nodules smooth with well defined borders on plantar aspect of right foot Laboratory Results - last 24 hr 07/27/16 07/28/16 07/28/16 16:50 16:38 16:58 WBC RBC Hgb Hct MCV MCHC RDW Plt Count MPV Neutrophils % Lymphocytes % Monocytes % Eosinophils % Basophils % Sodium Potassium Chloride Carbon Dioxide Anion Gap BUN Creatinine Creat Clearance w eGFR POC Glucometer 45 Random Glucose 132 H D Calcium Magnesium Iron 11 L TIBC 442 Iron Saturation 2 L Total Bilirubin AST ALT Alkaline Phosphatase Total Protein Albumin Globulin Albumin/Globulin Ratio Fbnwj-4-Nrtrmgxpc (%) Gosjq-5-Fynzwlvjg (%) Beta Globulins (%) Gamma Globulins (%) M-Lobo % IgG IgA IgM Ref Test Comments 07/28/16 07/28/16 07/29/16 17:26 20:58 01:25 WBC RBC Hgb Hct MCV MCHC RDW Plt Count MPV Neutrophils % Lymphocytes % Monocytes % Eosinophils % Basophils % Sodium Potassium Chloride Carbon Dioxide Anion Gap BUN Creatinine Creat Clearance w eGFR POC Glucometer 87 63 54 Random Glucose Calcium Magnesium Iron TIBC Iron Saturation Total Bilirubin AST ALT Alkaline Phosphatase Total Protein Albumin Globulin Albumin/Globulin Ratio Rucob-8-Fzmjnddxn (%) Wpkcy-0-Hxfjzeuft (%) Beta Globulins (%) Gamma Globulins (%) M-Lobo % IgG IgA IgM Ref Test Comments 07/29/16 07/29/16 07/29/16 06:55 07:10 07:30 WBC 6.9 RBC 3.16 L Hgb 7.0 L Hct 22.4 L MCV 70.8 L MCHC 31.2 L RDW 24.4 H Plt Count 349 MPV 8.4 Neutrophils % 63.0 Lymphocytes % 16.6 D Monocytes % 17.5 H Eosinophils % 1.8 D Basophils % 1.1 Sodium 134 L Potassium 4.3 Chloride 103 Carbon Dioxide 23 Anion Gap 8 BUN 23 H D Creatinine 1.3 D Creat Clearance w eGFR 55.06 POC Glucometer 45 Random Glucose 45 L* D Calcium 8.2 L Magnesium 1.8 Iron TIBC Iron Saturation Total Bilirubin 0.6 AST 16 ALT 11 L Alkaline Phosphatase 126 H Total Protein 6.7 Albumin 2.8 L Globulin Albumin/Globulin Ratio Umyks-8-Lngqgydoh (%) Ennon-2-Bggatiocr (%) Beta Globulins (%) Gamma Globulins (%) M-Lobo % IgG IgA IgM Ref Test Comments 07/29/16 07/29/16 07/29/16 07:30 07:30 08:22 WBC RBC Hgb Hct MCV MCHC RDW Plt Count MPV Neutrophils % Lymphocytes % Monocytes % Eosinophils % Basophils % Sodium Potassium Chloride Carbon Dioxide Anion Gap BUN Creatinine Creat Clearance w eGFR POC Glucometer 53 Random Glucose Cancelled Calcium Magnesium Iron TIBC Iron Saturation Total Bilirubin AST ALT Alkaline Phosphatase Total Protein Albumin Globulin Cancelled Albumin/Globulin Ratio Cancelled Dapum-1-Qlptbkqln (%) Cancelled Lkilf-3-Hopcannra (%) Cancelled Beta Globulins (%) Cancelled Gamma Globulins (%) Cancelled M-Lobo % Cancelled IgG Cancelled IgA Cancelled IgM Cancelled Ref Test Comments Cancelled 07/29/16 13:21 WBC RBC Hgb Hct MCV MCHC RDW Plt Count MPV Neutrophils % Lymphocytes % Monocytes % Eosinophils % Basophils % Sodium Potassium Chloride Carbon Dioxide Anion Gap BUN Creatinine Creat Clearance w eGFR POC Glucometer 100 Random Glucose Calcium Magnesium Iron TIBC Iron Saturation Total Bilirubin AST ALT Alkaline Phosphatase Total Protein Albumin Globulin Albumin/Globulin Ratio Xfmxo-7-Ffsadzyxv (%) Xxagl-6-Sdywsvpfi (%) Beta Globulins (%) Gamma Globulins (%) M-Lobo % IgG IgA IgM Ref Test Comments Active Medications Generic Name Dose Route Start Last Admin Trade Name Freq PRN Reason Stop Dose Admin Albuterol Sulfate 2 puff 07/28/16 22:00 07/29/16 14:21 Ventolin Hfa Inhaler - IH 2 inh QID RICARDO Administration Amlodipine Besylate 10 mg 07/29/16 10:00 07/29/16 10:23 Norvasc - PO 10 mg DAILY RICARDO Administration Ferrous Sulfate 325 mg 07/29/16 09:30 07/29/16 10:23 Feosol - PO 325 mg BIDWM RICARDO Administration Folic Acid 1 mg 07/29/16 10:00 07/29/16 10:23 Folic Acid - PO 1 mg DAILY RICARDO Administration Hydralazine HCl 25 mg 07/29/16 22:00 Apresoline - PO BID RICARDO Isosorbide Mononitrate 30 mg 07/29/16 10:00 07/29/16 10:23 Imdur - PO 30 mg DAILY RICARDO Administration Nadolol 20 mg 07/29/16 10:00 07/29/16 10:38 Corgard - PO 20 mg DAILY RICARDO Administration Pantoprazole Sodium 40 mg 07/28/16 22:00 07/29/16 10:23 Protonix - PO 40 mg BID RICARDO Administration Thiamine HCl 100 mg 07/29/16 10:00 07/29/16 10:23 Vitamin B1 - PO 100 mg DAILY RICARDO Administration ASSESSMENT/PLAN: Patient is a 66 year old male with a significant past medical history of hypertension, diabetes mellitus, hyperlipidemia, non-Ischemic Cardiomyopathy, ETOH abuse, and GI bleed. He presented to the ED on 07/27/2016 with SOB, and weakness x 1 week. Patient reports stopping Eliquis 2 months ago secondary to hematemesis. He also reports recent use of alcohol but is unable to quantify amount. States he last use alcohol 2 weeks ago. Imaging: Foot xray 07/28/2016: extensive deg. changes, loss of bone density with deg. changes, cystic or hypodense area @ base of metastarsal. Abd ultrasound 07/28/2016: ascites identified which is moderate in volume Chest xray 07/27/2016: large heart, no acute chest pathology Hematology: Symptomatic anemia - improving/likely chronic Assessment/Plan: s/p 2 units of prbc yesterday, receiving 1 unit of prbc today for hmg/hct 7.0/22.4 S/p platelets and FFP Baseline hgb 7-14 but will like to get his hmg to at least 8 Monitor CBC in a.m., Oxygen 2 liters prn Stool occult negative Started on Ferrous sulfate BID Hematology following Endocrine: Hypoglycemia - acute vs chronic Assessment/Plan: episodes of hypoglycemia today with slight improvement Will stop D5 and monitor Hemaglobin A1c pending Patient reports taking Lantus 30 units BID @ home which is currently on hold Monitor BGMs q 4 hours and PRN if symptomatic GI: Ascites, known ETOH abuse - chronic/likely secondary to cirrhosis Assessment/Plan: ascites identified which is moderate in volume as per abd. ultrasound IR consulted for possible paracentesis Started on Corgard for cirrhosis GI consulted EGD planned on Sunday : Acute Kidney Injury - improving 1.8>1.3 Assessment/Plan: baseline creat 1.1 IVF stopped for now, monitor Given Lasix by cardiology Trend Bun/Creat daily Psyche: ETOH abuse Assessment/Plan: Patient denies any more recent ETOH intake than 2 weeks ago No signs of withdrawal on exam CIWA score 0. Folic acid and thiamine started Ortho: Nodule to right plantar - chronic Assessment/Plan: Patient states he has been having this non painful nodule for years Ortho follow up as outpatient Xray of foot reviewed Cardiology: Afib/Hypertension - chronic/controlled on current regimen Assessment/Plan: Pt is no longer on Eliquis secondary to hematemesis. ASA 81mg on hold On Norvasc 10mg daily, Isosorbide 30mg daily, Hydralazine 25mg daily for BP Hyperlipidemia: Assessment/Plan: On home dose of Lipitor F.E.N. Fluids: tolerating PO Electrolytes: monitor with BMP Nutrition: advance as per GI Prophylaxis: DVT: scds, no AC secondary to anemia GI: Protonix 40mg daily Disposition: Full Code, continue inpatient care Visit type - Emergency Visit Emergency Visit: Yes ED Registration Date: 07/27/16 Care time: The patient presented to the Emergency Department on the above date and was hospitalized for further evaluation of their emergent condition. - New Patient This patient is new to me today: No - Critical Care Critical Care patient: No - Discharge Referral Referred to [facility] No
[2016-07-29 17:07] LABS: BASOPHIL 0.9 % (0-2.0); EOSINOPHIL 2.5 % (0-4.5); MCH 22.7 pg (25.7-33.7); MCHC 31.3 g/dl (32.0-35.9); MEAN CELL VOLUME 72.5 fl (80-96); MEAN PLT VOLUME 8.6 fl (7.5-11.1); NEUTROPHILS 69.5 % (42.8-82.8); PLATELET COUNT 355 K/MM3 (134-434); RDW 23.9 % (11.9-15.9)
[2016-07-29] MEDS: hydrALAZINE HCL 25 MG TABLET (FP) PO SCH (21:15)
[2016-07-30 00:06] LABS: HEP B SURFACE AB Reactive (.)
[2016-07-30 08:13] LABS: BASOPHIL 1.3 % (0-2.0); MCH 23.1 pg (25.7-33.7); MEAN CELL VOLUME 72.1 fl (80-96); MEAN PLT VOLUME 8.4 fl (7.5-11.1); NEUTROPHILS 61.2 % (42.8-82.8); PLATELET COUNT 322 K/MM3 (134-434); RDW 24.1 % (11.9-15.9); WHITE BLOOD COUNT 7.9 K/mm3 (4.0-10.0)
[2016-07-30 08:32] LABS: CALCIUM 7.8 mg/dL (8.5-10.1); COCKROFT - GAULT 60.15; CREATININE 1.5 mg/dL (0.7-1.3)
[2016-07-30] MEDS: FERROUS SO4 325 MG TABLET (FP) PO SCH (08:41)
[2016-07-30] MEDS ORDERED: PT OWN MED DRAWER 7, Y5N ONE (09:48)
[2016-07-30] MEDS: THIAMINE HCL 100 MG TABLET (FP) PO SCH (09:53)
[2016-07-30] MEDS: PANTOPRAZOLE 40 MG TABLET (FP) PO SCH (09:53)
[2016-07-30] MEDS: ISOSORBIDE MONONITRATE 30 MG TAB.SR.24H (FP) PO SCH (09:53)
[2016-07-30] MEDS: FOLIC ACID 1 MG TABLET (FP) PO SCH (09:53)
[2016-07-30] MEDS: hydrALAZINE HCL 25 MG TABLET (FP) PO SCH (09:54)
[2016-07-30] MEDS: amLODIPine BESYLATE 10 MG TABLET (FP) PO SCH (09:54)
[2016-07-30] MEDS: NADOLOL 20 MG TABLET (FP) PO SCH (09:54)
[2016-07-30] MEDS: ALBUTEROL SO4 6.7 GM HFA INHALER IH SCH (09:55)
[2016-07-30 09:58] VITALS: BP 136/98; PULSE 83; TEMP 97.8
--- NOTE | 2016-07-30 10:36 | PN ---
Progress Note, Physician Chief Complaint: chf History of Present Illness: dressed and waiting to be released he says; denies any sob or orthopnea no cp no palpitations +etoh - Current Medication List Current Medications: Active Medications Albuterol Sulfate (Ventolin Hfa Inhaler -) 2 puff IH QID [facility] Last Admin: 07/30/16 09:55 Dose: 2 inh Amlodipine Besylate (Norvasc -) 10 mg PO DAILY [facility] Last Admin: 07/30/16 09:54 Dose: 10 mg Ferrous Sulfate (Feosol -) 325 mg PO BIDWM [facility] Last Admin: 07/30/16 08:41 Dose: 325 mg Folic Acid (Folic Acid -) 1 mg PO DAILY [facility] Last Admin: 07/30/16 09:53 Dose: 1 mg Hydralazine HCl (Apresoline -) 25 mg PO BID [facility] Last Admin: 07/30/16 09:54 Dose: 25 mg Isosorbide Mononitrate (Imdur -) 30 mg PO DAILY [facility] Last Admin: 07/30/16 09:53 Dose: 30 mg Nadolol (Corgard -) 20 mg PO DAILY [facility] Last Admin: 07/30/16 09:54 Dose: 20 mg Pantoprazole Sodium (Protonix -) 40 mg PO BID [facility] Last Admin: 07/30/16 09:53 Dose: 40 mg Thiamine HCl (Vitamin B1 -) 100 mg PO DAILY [facility] Last Admin: 07/30/16 09:53 Dose: 100 mg - Objective Vital Signs: Vital Signs Temperature 97.8 F 07/30/16 09:57 Pulse Rate 83 07/30/16 09:57 Respiratory Rate 18 07/30/16 09:57 Blood Pressure 136/98 07/30/16 09:57 O2 Sat by Pulse Oximetry (%) 97 07/29/16 21:00 Constitutional: Yes: No Distress, Calm Eyes: No: Sclera Icterus HENT: No: Nasal Congestion Cardiovascular: Yes: Regular Rate and Rhythm, JVD, S1, S2, Other (PMI non diplaced). No: Gallop, Murmur Respiratory: Yes: CTA Bilaterally. No: Accessory Muscle Use, Rales, Wheezes Gastrointestinal: Yes: Normal Bowel Sounds, Soft. No: Tenderness Musculoskeletal: Yes: Other (No kyphosis) Extremities: No: Cold Edema: No Integumentary: No: Jaundice Neurological: Yes: Alert, Oriented (x3) Psychiatric: No: Agitated Labs: CBC, BMP 07/30/16 06:00 07/30/16 06:00 INR, PTT INR 1.42 (0.82-1.09) H 07/27/16 15:40 Assessment/Plan Abd ultrasound 07/28/2016: ascites identified which is moderate in volume Chest xray 07/27/2016: large heart, no acute chest pathology 66 year old male with a significant past medical history of hypertension, diabetes mellitus, hyperlipidemia, non-Ischemic Cardiomyopathy, ETOH abuse, and GI bleed. He presented to the ED on 07/27/2016 with SOB, and weakness x 1 week. Patient reports stopping Eliquis 2 months ago secondary to hematemesis. He also reports recent use of alcohol but is unable to quantify amount. States he last use alcohol 2 weeks ago. acute syst CHF: -known h/o decr LVEF per pt, no h/o CAD ? etoh related CMP -acute vol overload here with JVD on exam, s/p IVF and PRBCs -clear lungs, no sob--i.e. mainly Right-sided CHF here -iv lasix 40 x 1 on 07/29, remains with JVD to jaw at 90 degrees on 07/30 -creat up slightly today 1.3 to 1.5, but within his prior labs range zac -needs continued diuresis: rec lasix 80 ivp x 1 today if going to stay in hospital -if pt is to be discharged, should go home on lasix 80 po bid and have followup creatinine check in 1-2 days, and outpt f/u with surgical services assistant (sarah) within 7 days -cont nadolol (for portal HTN as well) -on lisinopril as well as hydral/nitrates per ER home med list -continue holding RONNIE for now given creatinine fluctuations -continue hydral/nitrates vasodilator therapy Anemia: -s/p 2 units of prbc -stool occult negative here, pt reports hematemesis 2 mo ago and h/o bleeding gastric ulcer 2013 -hgb 4 on admit here, remains 7's s/p transfusions -heme and GI notes reviewed--plan for EGD monday 07/31 -pt at this time is not a candidate for AC, at least until he has complete w/u for risk-stratification for GIB incl presence or absence of varices Ascites, known etoh abuse, ? etoh cirrhosis -abdomen very distended, moderate ascites reported on sono -IR consulted for possible paracentesis -GI following MARIA ELENA: -creat initiall 1.8, likely sec to severe anemia, ? vol depleted -improving here, s/p IVF and PRBCs -creat 1.3 (baseline 1.3-1.5 in 2013, ? more recent values) -stop fluids, will give test dose IV lasix today as above -monitor creat trend closely while diuresing -plan per hospitalist Afib: -outpt cardio (pmd?) started eliquis, stopped as outpt for hematemesis -to have EGD for varices -holding AC as above (hi risk for ASA as well until GIB w/u complete) -HR controlled, cont nadolol (also for portal HTN) HTN: -controlled -cont same meds Hyperlipidemia: -on atorva at home, continued here -ok as long as LFTs stable and GI approves (cirrhosis) Preop CV eval: -Revised CV Risk Index = 2, unknown functional capacity -He has isolated Right sided CHF with clear CXR and no sob--most prominent sx is ascites, likely combination of hepatic congestion and ? cirrhosis has developed -He is having no sob and sats have been normal on RA -I expect him to tolerate GI endoscopy well from chf standpoint -He is overall at intermediate risk for periop CV complications from the procedure--may proceed without further testing
[2016-07-30] MEDS ORDERED: FUROSEMIDE 40 MG/4 ML INJECTABLE VIAL IVPUSH ONE (10:54)
--- NOTE | 2016-07-30 13:42 | DS ---
Physical Exam: SUBJECTIVE: Patient seen and examined. He is dressed and says he is ready to go home. Adamantly refusing to have a EGD. States he will follow up with his PCP this week as a walk in. OBJECTIVE: Patient is insisting to go home, states that he was willing to stay for the blood transfusions but does not want any further treatment. I will honor his wishes but I did have a conversation with him about the importance of following up with his PCP and Family Medicine Chair for repeat blood work. Verbal and written instructions provided. Patient in agreement not to continue his home dose of Lantus and keep records of all his blood sugars to present to PCP. I stressed multiple times that he is not to take his home dose of Lantus, keep record of his blood sugars and bring it to his PCP. His blood sugars have been low here, but now are stable. Vital Signs Period Temp Pulse Resp BP Sys/Angulo Pulse Ox Last 24 Hr 97.6 F-98.4 F 74-83 18-20 118-157/52-98 97-97 PHYSICAL EXAM GENERAL: Awake, alert, and fully oriented, in no acute distress. HEAD: Normal with no signs of trauma. EYES: Pupils equal, round and reactive to light, extraocular movements intact, sclera icteric EARS, NOSE, THROAT: Ears normal, nares patent, oropharynx clear without exudates. Dry mucous membranes. NECK: Normal range of motion, supple without lymphadenopathy, JVD, or masses. HEART: Irregular rate and rhythm ABDOMEN: RUQ, LLQ tenderness, distended, hypoactive bowel sounds,+ umbilical hernia. MUSCULOSKELETAL: Normal range of motion at all joints. No bony deformities or tenderness. No CVA tenderness. UPPER EXTREMITIES: 2+ pulses, warm, well-perfused. No cyanosis. No clubbing. No peripheral edema. LOWER EXTREMITIES: +2 pitting bilateral lower ext. edema. NEUROLOGICAL: Cranial nerves II-XII intact. Normal speech. Gait steady PSYCHIATRIC: Cooperative. Good eye contact. Appropriate mood and affect. SKIN: Warm, dry, normal turgor, no rashes, palpable, painful circular nodules smooth with well defined borders on plantar aspect of right foot LABS Laboratory Results - last 24 hr 07/28/16 07/29/16 07/29/16 07:34 13:21 16:50 WBC 8.0 RBC 3.45 L Hgb 7.8 L D Hct 25.0 L MCV 72.5 L MCHC 31.3 L RDW 23.9 H Plt Count 355 MPV 8.6 Neutrophils % 69.5 Lymphocytes % 12.9 D Monocytes % 14.2 H Eosinophils % 2.5 Basophils % 0.9 Sodium Potassium Chloride Carbon Dioxide Anion Gap BUN Creatinine POC Glucometer 100 Random Glucose Calcium Hep A IgM Ab Confirm Negative Hepatitis A Ab Total Positive H Hep Bs Antigen Negative Hep Bs Antibody Reactive Hep B Core Total Ab Positive H 07/29/16 07/29/16 07/30/16 16:52 20:51 01:09 WBC RBC Hgb Hct MCV MCHC RDW Plt Count MPV Neutrophils % Lymphocytes % Monocytes % Eosinophils % Basophils % Sodium Potassium Chloride Carbon Dioxide Anion Gap BUN Creatinine POC Glucometer 96 89 94 Random Glucose Calcium Hep A IgM Ab Confirm Hepatitis A Ab Total Hep Bs Antigen Hep Bs Antibody Hep B Core Total Ab 07/30/16 07/30/16 07/30/16 05:33 06:00 06:00 WBC 7.9 RBC 3.17 L Hgb 7.3 L Hct 22.8 L MCV 72.1 L MCHC 32.0 RDW 24.1 H Plt Count 322 MPV 8.4 Neutrophils % 61.2 Lymphocytes % 18.8 D Monocytes % 14.7 H Eosinophils % 4.0 Basophils % 1.3 Sodium 135 L Potassium 4.2 Chloride 104 Carbon Dioxide 22 Anion Gap 9 BUN 23 H Creatinine 1.5 H POC Glucometer 119 Random Glucose 83 D Calcium 7.8 L Hep A IgM Ab Confirm Hepatitis A Ab Total Hep Bs Antigen Hep Bs Antibody Hep B Core Total Ab 07/30/16 09:49 WBC RBC Hgb Hct MCV MCHC RDW Plt Count MPV Neutrophils % Lymphocytes % Monocytes % Eosinophils % Basophils % Sodium Potassium Chloride Carbon Dioxide Anion Gap BUN Creatinine POC Glucometer 117 Random Glucose Calcium Hep A IgM Ab Confirm Hepatitis A Ab Total Hep Bs Antigen Hep Bs Antibody Hep B Core Total Ab HOSPITAL COURSE: Date of Admission:07/27/16 Date of Discharge: 07/30/16 Patient is a 66 year old male with a significant past medical history of hypertension, diabetes mellitus, hyperlipidemia, non-Ischemic Cardiomyopathy, ETOH abuse, and GI bleed. He presented to the ED on 07/27/2016 with SOB, and weakness x 1 week. Patient reports stopping Eliquis 2 months ago secondary to hematemesis. He also reports recent use of alcohol but is unable to quantify amount. States he last use alcohol 2 weeks ago. Imaging: Foot xray 07/28/2016: extensive deg. changes, loss of bone density with deg. changes, cystic or hypodense area @ base of metastarsal. Abd ultrasound 07/28/2016: ascites identified which is moderate in volume Chest xray 07/27/2016: large heart, no acute chest pathology Hematology: Symptomatic anemia - improved/likely chronic - s/p 3 units of PRBC Assessment/Plan: during hospitalization received 3 units of PRBC, 1 unit of platelets and FFPs He is refusing an EGD at this time, states he may consider EGD as an outpatient. Monitor CBC in a.m., Oxygen 2 liters prn Stool occult negative Started on Ferrous sulfate BID Endocrine: Hypoglycemia - improving Assessment/Plan: Blood sugars more stable Patient reports taking Lantus 30 units BID @ home prior to admission Lantus discontinued, pt to keep records of blood sugars at home and follow up with PCP GI: Ascites, known ETOH abuse - chronic/likely secondary to cirrhosis Assessment/Plan: ascites identified which is moderate in volume as per abd. ultrasound I consulted IR, but pt refusing to wait for IR evaluation. Started on Corgard for cirrhosis GI as an outpatient if patient agrees Refusing EGD : Acute Kidney Injury - Creat. 1.5, baseline 1.1 As per cardiology, Lasix 80mg BID Patient to follow up with PCP for repeat BMP Psyche: ETOH abuse - no signs of withdrawal Assessment/Plan: No signs of withdrawal during hospitalization No signs of withdrawal on exam CIWA score 0. On folic acid and thiamine Ortho: Nodule to right plantar - chronic Assessment/Plan: Patient states he has been having this non painful nodule for years Ortho follow up as outpatient, pt states he has this nodule and has refused workup Xray of foot reviewed Cardiology: Afib/Hypertension - chronic/controlled on current regimen Assessment/Plan: Pt is no longer on Eliquis secondary to hematemesis. ASA 81mg on hold - to restart once cleared by his PCP/Family Medicine Chair On Norvasc 10mg daily, Isosorbide 30mg daily, Hydralazine 25mg daily for BP Disposition: Full Code. Discharge today with close follow up with PCP, clinical professor and GI. Patient adamantly refused to stay for recommended EGD, states he will follow up outpatient. Minutes to complete discharge: 45 Discharge Summary Reason For Visit: ANEMIA Current Active Problems Anemia (Acute) Ascites (Acute) DVT prophylaxis (Acute) Diabetes mellitus (Acute) HLD (hyperlipidemia) (Acute) HTN (hypertension) (Acute) Symptomatic anemia (Acute) Condition: Guarded - Instructions Diet, Activity, Other Instructions: Mr. Dunn: Check with your doctor in 3 days and have your blood work redrawn (CBC and CMP) so that your kidney function can be checked. You will also need to have your CBC checked to make sure that your anemia is not getting worse. You may need another blood transfusion. You have received 3 units of blood. You will need an EGD with Dr. Dodson. Please also see your clinical professor within [address] days (Dr[address] Christian). Por favor de jocelyn estas medicinas: If you feel short of breath or dizzy, please return to the ER. New Medications: Lasix 80mg twice per day Protonix 40mg daily Corgard daily Folic acid Multivitamin PLEASE CHECK YOUR BLOOD SUGAR AND KEEP A RECORD TO BRING TO YOUR PRIMARY CARE DOCTOR. DO NOT TAKE LANTUS YOUR BLOOD SUGARS WERE VERY LOW HERE DO NOT START THE ASPIRIN 81MG UNTIL CLEARED BY YOUR PRIMARY CARE PHYSICIAN. If you have any questions, please call me at [phone] between 7a and 7p Prema Damico NP Referrals: David Nichols MD [Primary Care Provider] - Disposition: HOME - Home Medications Comprehensive Discharge Medication List: Ambulatory Orders Albuterol Sulfate Inhaler - [Ventolin HFA Inhaler -] 1 - 2 inh PO QID 02/25/14 Hydralazine HCl 25 mg PO BID #0 tablet 03/02/14 Isosorbide Mononitrate [Imdur] 30 mg PO DAILY #0 tab.sr.24h 03/02/14 Allopurinol [Zyloprim -] 100 mg PO DAILY 07/27/16 Amlodipine Besylate [Norvasc -] 10 mg PO DAILY 07/27/16 Aspirin Coated [Ecotrin -] 81 mg PO DAILY 07/27/16 Atorvastatin Ca [Lipitor] 40 mg PO HS 07/27/16 Furosemide [Lasix] 20 mg PO DAILY 07/27/16 Hydralazine HCl [Apresoline -] 25 mg PO DAILY 07/27/16 Insulin Glargine,Hum.rec.anlog [Lantus Solostar PEN (NF)] 3 ml SQ BID 07/27/16 Lisinopril [Prinivil -] 40 mg PO DAILY 07/27/16 Spironolactone 25 mg PO DAILY 07/27/16 This patient is new to me today: No Emergency Visit: Yes ED Registration Date: 07/27/16 Care time: The patient presented to the Emergency Department on the above date and was hospitalized for further evaluation of their emergent condition. Critical Care patient: No - Discharge Referral Referred to [facility] No
[2016-08-01 00:31] LABS: A/G RATIO 0.8 (0.7-1.7); ALBUMIN 2.9 g/dL (2.9-4.4); ALPHA-1-GLOBULIN 0.3 g/dL (0.0-0.4); BETA GLOBULIN 1.2 g/dL (0.7-1.3); GAMMA GLOBULIN 1.8 g/dL (0.4-1.8); GLOBULIN, TOTAL 3.8 g/dL (2.2-3.9); M-SPIKE Not Observed g/dL (Not Observed); TOTAL PROTEIN 6.7 g/dL (6.0-8.5)
[2016-08-01 14:13] LABS: ALBUMIN FOR UPE 43.4 % (.); M-SPIKE, % Comment: % (Not Observed)
== END 2016-07-30 14:28 | disposition home or self-care (01) | DRG 811 ==
LOC: JER 14:56 → JERBED 16:30 → J6S 21:50
PROVIDERS: ADMIT Internal Medicine; ATTEND Nurse Practitioner Family
PROC: 30233N1 Transfusion of Nonautologous Red Blood Cells into Peripheral Vein, Percutaneous Approach (ICD-10-PCS; principal; 2016-07-27)
DX: D50.9 Iron deficiency anemia, unspecified (principal); I50.21 Acute systolic (congestive) heart failure; I42.8 Other cardiomyopathies; R18.8 Other ascites; N17.9 Acute kidney failure, unspecified; I25.10 Atherosclerotic heart disease of native coronary artery without angina pectoris; E78.5 Hyperlipidemia, unspecified; I11.0 Hypertensive heart disease with heart failure; I48.91 Unspecified atrial fibrillation; E11.9 Type 2 diabetes mellitus without complications; J45.909 Unspecified asthma, uncomplicated; M10.9 Gout, unspecified; F10.10 Alcohol abuse, uncomplicated; R14.0 Abdominal distension (gaseous); K74.69 Other cirrhosis of liver; Z79.4 Long term (current) use of insulin
CPT/HCPCS: 36415; 36430; 71010-TC; 73630-TC-RT; 76700-TC; 80048; 80053; 80307; 81003; 82272; 82550; 82607; 82728; 82746; 82784; 82947; 83036; 83540; 83550; 83735; 84100; 84155; 84156; 84157; 84165; 84443; 84484; 85025; 85044; 85610; 85730; 86334; 86704; 86706; 86708; 86850; 86900; 86901; 86922; 87340; 93005; 93010; 99283-25; P9038; P9058